=== PATIENT | male | born 1965 | race Hispanic/Latino ===

== ENCOUNTER 2018-03-09 07:37 | Emergency (ER) | payer OTHER ==
[~2018-03-09] VITALS: Ht 172.7 cm; Wt 127.0 kg
[~2018-03-09 07:37] MED LIST: ALLOPURINOL100 MG PO; BUPROPION HCL100 MG PO; NAPROXEN250 MG PO
[2018-03-09] MEDS ORDERED: IBUPROFEN 200 MG TAB PO STA (08:25)
[2018-03-09] MEDS ORDERED: ONDANSETRON HCL 4 MG ORAL DISINTEGRATING TAB PO ONE (08:30)
[2018-03-09] MEDS ORDERED: HYDROCODONE/APAP 7.5MG-325MG 1 EA TAB PO ONE (08:30)
--- NOTE | 2018-03-09 09:31 | Diagnostic Imaging Report ---
PROCEDURE:X-RAY LEFT KNEE, THREE OR MORE VIEWS COMPARISON:None. INDICATIONS:LEFT KNEE PAIN, GOUT FINDINGS: The bones are well-mineralized. There are mild medial compartment predominant tricompartmental degenerative changes with joint space narrowing and osteophyte formation. Trace suprapatellar effusion. No evidence of erosion. No evidence of fracture or malalignment. No soft tissue calcifications. 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 No specific evidence of inflammatory arthritis. Trace suprapatellar effusion. Dictated by: NATA MUHAMMAD M.D. on 03/09/2018 at 9:40 Electronically approved by: NATA MUHAMMAD M.D. on 03/09/2018 at 9:40
[2018-03-09 11:59] VITALS: BP 132/87
--- NOTE | 2018-03-10 12:40 | Cardiology Report ---
DATE OF STUDY: DOPPLER SCAN OF THE LEFT LEG VEINS ATTENDING PHYSICIAN: Dr. Elidia Hughes. A boone cyst is noted. The veins are compressible. No definite deep venous thrombosis. CONCLUSIONS 1. No definite deep venous thrombosis involving the left leg veins. 1. An incidentally noted small Boone cyst in the left popliteal fossa. 2. The right leg was not studied. Job#: [id number] EV cc: DR. ELIDIA HUGHES
== END 2018-03-09 12:10 | disposition home or self-care (01) ==
LOC: ER 07:37
DX: M25.562 Pain in left knee (principal); M17.12 Unilateral primary osteoarthritis, left knee; M71.22 Synovial cyst of popliteal space [Baker], left knee; M10.062 Idiopathic gout, left knee
CPT/HCPCS: 93971; 99283

== ENCOUNTER 2019-01-22 11:36 | Emergency (ER) | payer OTHER ==
[~2019-01-22] VITALS: Ht 172.7 cm; Wt 127.0 kg
--- OUTSIDE RECORDS SUMMARY | 2019-01-22 11:39 | XMS REPORT ---
Author [facility] Address Unknown Phone Unavailable Care Team Providers Care Ball Shagger Name Role Phone Jermaine HAGER Unavailable Unavailable Problems This patient has no known problems. Allergies, Adverse Reactions, Alerts This patient has no known allergies or adverse reactions. Medications This patient has no known medications. Results Test Description Test Time Test Comments Text Results Atomic Results Result Comments VENOUS DUPLEX LWR U/L 2018-03-10 11:00:00 [place] [address] Patient Name : HEVER KERN MR #: [id number] : 1965 Age/Sex: 52/M Adm Physician : MAYNOR HAGER MD Admit Date : Location : ER Room/Bed : REPORT: Cardiology Report DATE OF STUDY: DOPPLER SCAN OF THE LEFT LEG VEINS ATTENDING PHYSICIAN: Dr. Maynor Boss. A boone cyst is noted. The veins are compressible. No definite deep venous thrombosis. CONCLUSIONS 1. No definite deep venous thrombosis involving the left leg veins. 1. An incidentally noted small Boone cyst in the left popliteal fossa. 2. The right leg was not studied. Job#: [id number] EV cc: DR. MAYNOR BOSS Signature Date Dictated By: MATT GUSTAFSON MD Transcribed By: EDS on 03/10/18 <Electronically signed by MATT GUSTAFSON MD><<Signature on File>>03/12/18 1025 COPY TO: KNEE LEFT THREE VIEWS 2018-03-09 09:40:00 [place] [address] Patient Name: HEVER KERN MR #: [id number] : 1965 Age/Sex: 52/M Req #: [id number] Adm Physician: Ordered by: MAYNOR HAGER MD Report #: [id number] Location: ER Room/Bed: Procedure: [id number] DX/KNEE LEFT THREE VIEWS Exam Date: 03/09/18 Exam Time: 0850 REPORT STATUS: Signed PROCEDURE: X-RAY LEFT KNEE, THREE OR MORE VIEWS COMPARISON: None. INDICATIONS: LEFT KNEE PAIN, GOUT FINDINGS: The bones are well-mineralized. There are mild medial compartment predominant tricompartmental degenerative changes with joint space narrowing and osteophyte formation. Trace suprapatellar effusion. No evidence of erosion. No evidence of fracture or malalignment. No soft tissue calcifications. 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 No specific evidence of inflammatory arthritis. Trace suprapatellar effusion. Dictated by: NATA MUHAMMAD M.D. on 03/09/2018 at 9:40 Electronically approved by: NATA MUHAMMAD M.D. on 03/09/2018 at 9:40 Dictated By: NATA MUHAMMAD MD 9 Transcribed By: SONALI on 03/09/18939 COPY TO: MAYNOR HAGER MD
[2019-01-22 12:25] LABS: BASOPHILS # (AUTO) 0.1 (0.0-0.1); BASOPHILS % 0.9 % (0.0-1.0); EOSINOPHILS # (AUTO) 0.2 (0.0-0.4); EOSINOPHILS % 2.5 % (0.0-6.0); HEMATOCRIT 44.3 % (38.2-49.6); HEMOGLOBIN 14.8 g/dL (14.0-18.0); LYMPHOCYTES # (AUTO) 2.4 (1.0-3.2); LYMPHOCYTES % 28.3 % (18.0-39.1); MEAN CORPUSCULAR HEMOGLOBIN 29.8 pg (28-32); MEAN CORPUSCULAR HGB CONC 33.4 g/dL (31-35); MEAN CORPUSCULAR VOLUME 89.3 fL (81-99); MONOCYTES # (AUTO) 0.9 (0.2-0.8); NEUTROPHILS # (AUTO) 4.9 (2.1-6.9); NEUTROPHILS % 57.9 % (38.7-80.0); PLATELET COUNT 202 x10e3/uL (140-360); RED BLOOD COUNT 4.96 x10e6/uL (4.3-5.7); RED CELL DISTRIBUTION WIDTH 12.6 % (11.7-14.4)
[2019-01-22 12:40] LABS: INR 0.93
[2019-01-22 12:41] LABS: PARTIAL THROMBOPLASTIN TIME 32.6 seconds (23.8-35.5)
[2019-01-22 12:52] LABS: ALANINE AMINOTRANSFERASE 23 IU/L (0-55); ALBUMIN/GLOBULIN RATIO 1.2 (0.8-2.0); ALKALINE PHOSPHATASE 85 IU/L (40-150); ANION GAP 12.3 mmol/L (8-16); BLOOD UREA NITROGEN 10 mg/dL (7-26); BUN/CREATININE RATIO 12 (6-25); CALCIUM 9.6 mg/dL (8.4-10.2); CARBON DIOXIDE 31 mmol/L (22-29); CHLORIDE 104 mmol/L (98-107); CREATINE KINASE 319 IU/L (30-200); CREATININE, SERUM 0.82 mg/dL (0.72-1.25); EST GLOMERULAR FILTRATION RATE > 60 ML/MIN (60-); GLUCOSE 104 mg/dL (74-118); MAGNESIUM 2.1 MG/DL (1.3-2.1); POTASSIUM 4.3 mmol/L (3.5-5.1); SODIUM 143 mmol/L (136-145)
--- NOTE | 2019-01-22 13:11 | Diagnostic Imaging Report ---
EXAMINATION: CHEST SINGLE (PORTABLE) INDICATION: Lower extremity edema. COMPARISON: None FINDINGS: TUBES and LINES: None. LUNGS: Lungs are well inflated. There is no evidence of pneumonia or pulmonary edema. PLEURA: No pleural effusion or pneumothorax. HEART AND MEDIASTINUM: The cardiomediastinal silhouette is unremarkable. BONES AND SOFT TISSUES: No acute osseous abnormality. UPPER ABDOMEN: No free air under the diaphragm. IMPRESSION: No acute radiographic abnormality. Signed by: Dr. Rancho Nguyen MD on 01/22/2019 1:08 PM
== END 2019-01-22 15:34 | disposition home or self-care (01) ==
LOC: ER 11:36
DX: M79.661 Pain in right lower leg (principal); I87.1 Compression of vein; I87.2 Venous insufficiency (chronic) (peripheral); M79.89 Other specified soft tissue disorders; R26.2 Difficulty in walking, not elsewhere classified; E78.5 Hyperlipidemia, unspecified; M10.9 Gout, unspecified
CPT/HCPCS: 36415; 71045; 80053; 82550; 82553; 83735; 83880; 84484; 85025; 85610; 85730; 93005; 93971; 99284